=== PATIENT | female | born 1940 | race Caucasian/White ===

== ENCOUNTER 2019-11-08 16:19 | Observation (INO) | payer MEDICARE, OTHER ==
[~2019-11-08] VITALS: Ht 162.6 cm; Wt 61.7 kg
[2019-11-08 16:59] LABS: BASOPHILS % 0.7 % (0.0-1.0); EOSINOPHILS # (AUTO) 0.1 (0.0-0.4); EOSINOPHILS % 1.5 % (0.0-6.0); HEMATOCRIT 38.4 % (34.2-44.1); HEMOGLOBIN 12.2 g/dL (12.0-16.0); LYMPHOCYTES # (AUTO) 1.1 (1.0-3.2); LYMPHOCYTES % 19.2 % (18.0-39.1); MEAN CORPUSCULAR HEMOGLOBIN 30.2 pg (28-32); MEAN CORPUSCULAR HGB CONC 31.8 g/dL (31-35); MONOCYTES # (AUTO) 0.4 (0.2-0.8); MONOCYTES % 6.9 % (4.4-11.3); NEUTROPHILS # (AUTO) 4.3 (2.1-6.9); NEUTROPHILS % 71.5 % (38.7-80.0); PLATELET COUNT 198 x10e3/uL (140-360); RED BLOOD COUNT 4.04 x10e6/uL (3.6-5.1); RED CELL DISTRIBUTION WIDTH 13.2 % (11.7-14.4)
[2019-11-08 17:16] LABS: ALANINE AMINOTRANSFERASE 11 IU/L (0-55); ALBUMIN 3.5 g/dL (3.5-5.0); ALBUMIN/GLOBULIN RATIO 1.1 (0.8-2.0); ALKALINE PHOSPHATASE 67 IU/L (40-150); ANION GAP 9.7 mmol/L (8-16); BLOOD UREA NITROGEN 16 mg/dL (7-26); BUN/CREATININE RATIO 20 (6-25); CALCIUM 9.3 mg/dL (8.4-10.2); CARBON DIOXIDE 27 mmol/L (22-29); CHLORIDE 107 mmol/L (98-107); CREATINE KINASE 30 IU/L (29-168); CREATININE, SERUM 0.82 mg/dL (0.57-1.11); EST GLOMERULAR FILTRATION RATE > 60 ML/MIN (60-); GLUCOSE 109 mg/dL (74-118); POTASSIUM 3.7 mmol/L (3.5-5.1); SODIUM 140 mmol/L (136-145)
[2019-11-08 18:47] LABS: CLARITY,URINE CLEAR (CLEAR); COLOR,URINE YELLOW (YELLOW)
[2019-11-08 18:48] LABS: BILIRUBIN,URINE NEGATIVE (NEGATIVE); KETONES,URINE NEGATIVE (NEGATIVE); LEUKOCYTE ESTERASE ,URINE TRACE (NEGATIVE); NITRITE,URINE NEGATIVE (NEGATIVE); PROTEIN,URINE DIPSTICK NEGATIVE (NEGATIVE); URINE UROBILINOGEN 0.2 mg/dL (0.2 - 1)
[2019-11-08 19:00] LABS: BACTERIA,URINE FEW /HPF; EPITHELIAL CELLS,URINE FEW /LPF; RBC,URINE 0-5 /HPF (0-5); WBC,URINE (MAN) 0-5 /HPF (0-5)
[2019-11-08] MEDS ORDERED: ACETAMINOPHEN 325 MG TAB PO PRN (19:30)
[2019-11-08 20:40] VITALS: BP 144/77
[2019-11-08] MEDS: SODIUM CHLORIDE 0.9% 1000ML 1,000 ML IV SCH (21:00)
[2019-11-08] MEDS ORDERED: DOCUSATE SODIUM 100 MG CAP PO PRN (21:15)
[2019-11-08] MEDS ORDERED: HYDRALAZINE HCL 20 MG/ML VIAL IV PRN (21:15)
[2019-11-08] MEDS ORDERED: TRAMADOL HCL 50 MG TAB PO PRN (21:15)
[2019-11-09] VITALS (8 sets, daily range): BP systolic 114–148; BP diastolic 62–80
[2019-11-09] MEDS ORDERED: PNEUMOCOCCAL VACCINE POLYVALENT 23 MCG/0.5 ML VIAL IM SCH (00:05)
[2019-11-09] MEDS ORDERED: SODIUM CHLORIDE 0.9% 50ML 50 ML ONE (00:57)
[2019-11-09] MEDS ORDERED: IOPAMIDOL 370 MG/ML 200 ML INFUS..BTL INJ ONE (00:58)
[2019-11-09 01:22] LABS: CREATINE KINASE 38 IU/L (29-168)
[2019-11-09 05:12] LABS: BASOPHILS % 0.6 % (0.0-1.0); EOSINOPHILS # (AUTO) 0.1 (0.0-0.4); EOSINOPHILS % 1.8 % (0.0-6.0); HEMATOCRIT 36.8 % (34.2-44.1); HEMOGLOBIN 11.9 g/dL (12.0-16.0); LYMPHOCYTES # (AUTO) 1.5 (1.0-3.2); LYMPHOCYTES % 23.3 % (18.0-39.1); MEAN CORPUSCULAR HEMOGLOBIN 29.7 pg (28-32); MEAN CORPUSCULAR HGB CONC 32.3 g/dL (31-35); MEAN CORPUSCULAR VOLUME 91.8 fL (81-99); MONOCYTES # (AUTO) 0.5 (0.2-0.8); MONOCYTES % 8.1 % (4.4-11.3); NEUTROPHILS # (AUTO) 4.3 (2.1-6.9); NEUTROPHILS % 65.9 % (38.7-80.0); PLATELET COUNT 192 x10e3/uL (140-360); RED BLOOD COUNT 4.01 x10e6/uL (3.6-5.1); RED CELL DISTRIBUTION WIDTH 13.1 % (11.7-14.4)
[2019-11-09 05:33] LABS: ANION GAP 13.2 mmol/L (8-16); BLOOD UREA NITROGEN 12 mg/dL (7-26); BUN/CREATININE RATIO 17 (6-25); CARBON DIOXIDE 22 mmol/L (22-29); CHLORIDE 110 mmol/L (98-107); CHOL/HDL RATIO 4.4 (3.0-3.6); CHOLESTEROL 208 MD/DL (0-199); CREATININE, SERUM 0.71 mg/dL (0.57-1.11); EST GLOMERULAR FILTRATION RATE > 60 ML/MIN (60-); GLUCOSE 93 mg/dL (74-118); HDL CHOLESTEROL 47 MG/DL (40-60); LDL CHOLESTEROL 148 MG/DL (60-130); POTASSIUM 4.2 mmol/L (3.5-5.1); SODIUM 141 mmol/L (136-145); TRIGLYCERIDES 65 MG/DL (0-149)
[2019-11-09 05:49] LABS: THYROID STIMULATING HORMONE 1.968 uIU/mL (0.350-4.940)
[2019-11-09 05:52] LABS: CREATINE KINASE MB 0.9 ng/mL (0-5.0)
[2019-11-09] MEDS: SODIUM CHLORIDE 0.9% 1000ML 1,000 ML IV SCH ×2 (06:50→20:03)
[2019-11-09] MEDS: ENOXAPARIN SOD INJ 40 MG/0.4 ML SYR SC SCH (18:15)
[2019-11-09 20:29] LABS: CREATINE KINASE 51 IU/L (29-168)
[2019-11-09] MEDS: MELATONIN 5 MG TABLET PO PRN (21:53)
[2019-11-10] VITALS: BP 112/72
[2019-11-10 04:00] VITALS: BP 141/73
[2019-11-10 05:17] LABS: HEMATOCRIT 37.2 % (34.2-44.1)
[2019-11-10 05:59] LABS: ANION GAP 11.8 mmol/L (8-16); BLOOD UREA NITROGEN 13 mg/dL (7-26); BUN/CREATININE RATIO 17 (6-25); CALCIUM 9.4 mg/dL (8.4-10.2); CARBON DIOXIDE 28 mmol/L (22-29); CHLORIDE 106 mmol/L (98-107); CREATININE, SERUM 0.76 mg/dL (0.57-1.11); EST GLOMERULAR FILTRATION RATE > 60 ML/MIN (60-); GLUCOSE 92 mg/dL (74-118); POTASSIUM 3.8 mmol/L (3.5-5.1); SODIUM 142 mmol/L (136-145)
[2019-11-10 08:00] VITALS: BP 125/70
[2019-11-10 08:39] VITALS: BP 125/70
[2019-11-10] MEDS: ENOXAPARIN SOD INJ 40 MG/0.4 ML SYR SC SCH (18:07)
[2019-11-10 20:00] VITALS: BP 160/79
[2019-11-10 20:30] VITALS: BP 160/79
[2019-11-10 20:35] LABS: CREATINE KINASE 53 IU/L (29-168)
[2019-11-10] MEDS: MELATONIN 5 MG TABLET PO PRN (20:40)
[2019-11-11] VITALS: BP 119/77
[2019-11-11 04:00] VITALS: BP 117/61
[2019-11-11] MEDS ORDERED: SENNA LAX8.6 MG PO (08:01)
[2019-11-11] MEDS ORDERED: BENZONATATE100 MG PO (08:01)
[2019-11-11] MEDS ORDERED: PRILOSEC OTC20 MG PO (08:01)
[2019-11-11] MEDS ORDERED: MIRALAX17 GM PO (08:01)
[2019-11-11 08:22] VITALS: BP 132/77
[2019-11-11 08:42] VITALS: BP 132/77
[2019-11-11] MEDS ORDERED: SERTRALINE HCL 50 MG TAB PO SCH (10:00)
[2019-11-11] MEDS ORDERED: MEMANTINE 10 MG TAB PO SCH (10:00)
[2019-11-11] MEDS ORDERED: NAMENDA5 MG PO (12:47)
[2019-11-11] MEDS ORDERED: ZOLOFT50 MG (12:48)
== END 2019-11-11 14:10 | disposition home or self-care (01) ==
LOC: ER 17:52 → ERHOLD 20:19 → INTOOBSV 20:19 → MED/SURG 21:01 → INTOOBSV 11-10 09:42 → OBSVTOIN 11-10 09:42
PROVIDERS: ADMIT Internal Medicine; ATTEND Internal Medicine
DX: R55 Syncope and collapse (principal); E78.5 Hyperlipidemia, unspecified; E11.9 Type 2 diabetes mellitus without complications; R41.0 Disorientation, unspecified; F41.1 Generalized anxiety disorder; F03.91 Unspecified dementia, unspecified severity, with behavioral disturbance; Z11.59 Encounter for screening for other viral diseases
CPT/HCPCS: 36415 ×3; 70450; 70551; 71045; 71260; 80048 ×2; 80053; 80061; 80320; 81001; 82550 ×3; 82553 ×3; 83036; 84443; 84484 ×3; 85014; 85018; 85025 ×2; 85379; 93005 ×2; 93306; 93880; 95812; 97161; 99284; G0378 ×4; J1650 ×2; J7030 ×2; Q9967; U0002